=== PATIENT | female | born 1995 | race Caucasian/White ===

== ENCOUNTER 2019-04-12 11:07 | Emergency (ER) | payer SELFPAY ==
[2019-04-12] MEDS ORDERED: Ibuprofen 200 MG TAB ONE (12:09)
== END 2019-04-12 12:19 | disposition home or self-care (01) ==
LOC: ERS 11:07
DX: K02.9 Dental caries, unspecified (principal); F17.210 Nicotine dependence, cigarettes, uncomplicated